=== PATIENT | male | born 1950 | race African-American/Black ===

== ENCOUNTER 2018-05-24 10:00 | Inpatient (IN) ==
[2018-05-24] MEDS ORDERED: MECLIZINE 25 MG TABLET PO STA (10:27)
[2018-05-24] MEDS ORDERED: ONDANSETRON 4 MG/2 ML VIAL IV STA (10:27)
[2018-05-24] MEDS ORDERED: SODIUM CHLORIDE 0.9% 500 ML IV STA (10:27)
[2018-05-24 11:28] LABS: PT Patient Result 10.8 SECS
[2018-05-24 11:34] LABS: Basophils # 0.1 10*3/uL (0.0-0.2); Basophils % 1.1 % (0.0-0.8); Eosinophils # 0.1 10*3/uL (0.0-0.87); Eosinophils % 1.1 % (0.00-10.9); Hematocrit 42.4 VOL% (42.0-52.0); Hemoglobin 13.5 GM/DL (14.0-18.0); Immature Granulocytes % 0.4 %; Immature Granulocytes Absolute 0.02 #; Lymphocytes # 1.5 10*3/uL (1.4-4.0); Lymphocytes % 32.1 % (21.2-54.2); Mean Corpuscular HGB Conc 31.8 GM/DL (32-36); Mean Corpuscular Hemoglobin 23 PG (27-34); Mean Corpuscular Volume 73.2 FL (87-102); Mean Platelet Volume 10.2 FL (9.6-12.0); Monocytes # 0.6 10*3/uL (0.11-0.8); Monocytes % 13.3 % (1.7-12.7); Neutrophils # 2.4 10*3/uL (1.4-7.4); Platelet Count 266 T/CUMM (130-400); Red Blood Count 5.79 MC/CUMM (3.8-5.5); Red Cell Distribution Width 15.4 % (9.3-17.3); White Blood Count 4.5 T/CUMM (4-12)
[2018-05-24 11:46] LABS: Bilirubin,Total 0.6 MG/DL (0.2-1.0); CKMB % 1.7 %; Calcium 9.2 MG/DL (8.5-10.1); Osmolality,Calculated 266.2 MOS/KG (273-304); Potassium 3.7 MMOL/L (3.5-5.1); Thyroid Stimulating Hormone 0.317 uIU/ml (0.358-3.74); Total Protein 9.2 G/DL (6.4-8.3)
[2018-05-24 11:48] LABS: Troponin I 5.97 NG/ML (0.00-0.045)
[2018-05-24] MEDS ORDERED: ENOXAPARIN 100 MG/ML SYRINGE SUBCUT STA (12:22)
[2018-05-24] MEDS ORDERED: ASPIRIN 325 MG TABLET PO STA (12:22)
[2018-05-24 12:42] LABS: Sedimentation Rate-Westergren 13 MM/HR (0-20)
[2018-05-24] MEDS ORDERED: POTASSIUM CHLORIDE 20 MEQ TABLET PO PRN ×2 (12:51)
[2018-05-24] MEDS ORDERED: MAGNESIUM SULF RIDER 2 GM in PREMIX 1 EACH IV PRN ×3 (12:51→14:24)
[2018-05-24] MEDS ORDERED: MAGNESIUM SULF RIDER 4 GM in PREMIX 1 EACH IV PRN ×2 (12:51→14:16)
[2018-05-24] MEDS ORDERED: MORPHINE 4 MG/1 ML VIAL IV PRN (12:51)
[2018-05-24] MEDS ORDERED: ZALEPLON 5 MG CAPSULE PO PRN (12:51)
[2018-05-24] MEDS ORDERED: MAGNESIUM HYDROXIDE SUSP 30 ML UDCUP PO PRN (12:51)
[2018-05-24] MEDS ORDERED: DIAZEPAM 5 MG TABLET PO ONE (14:24)
[2018-05-24] MEDS ORDERED: POTASSIUM CHLORIDE RIDER 10 MEQ in PREMIX 1 EACH IV PRN (14:24)
[2018-05-24] MEDS ORDERED: diphenhydrAMINE CAP 25 MG CAPSULE PO ONE (14:24)
[2018-05-24] MEDS ORDERED: ACETAMINOPHEN 325 MG/10.15 ML UDCUP PO STA (14:29)
[2018-05-24] MEDS: SODIUM CHLORIDE 0.9% 1,000 ML IV SCH (14:38)
[2018-05-24 14:50] LABS: Apearance,Urine CLEAR (Clear); Bilirubin,Urine Negative (Negative); Blood, Urine Negative (Negative); Glucose,Urine (UA) Negative (Negative); Ketones,Urine Negative (Negative); Mucus,Urine Occasional /LPF (Occasional); Nitrite,Urine Negative (Negative); Protein,Urine Negative; RBC,Urine <1 /HPF (0-4); Urine Color Yellow (Yellow); Urine Specific Gravity 1.014 (1.001-1.035); Urine Urobilinogen < 2.0 EU/DL (0.2-1.0); WBC,Urine 1 /HPF (0-6)
[2018-05-24] MEDS: CARVEDILOL 12.5 MG TABLET PO SCH ×2 (15:00→21:14)
[2018-05-24] MEDS ORDERED: LIDOCAINE 1% 20 ML VIAL ONE (15:13)
[2018-05-24] MEDS ORDERED: HYDROmorphone 2 MG/1 ML VIAL ONE (15:16)
[2018-05-24] MEDS ORDERED: MIDAZOLAM 2 MG/2 ML VIAL ONE (15:17)
[2018-05-24] MEDS ORDERED: NITROGLYCERIN SL 0.4 MG TABLET SL PRN (15:37)
[2018-05-24] MEDS ORDERED: NITROGLYCERIN 2% OINT 1 INCH/GM PACK TOP SCH (18:00)
[2018-05-24] MEDS: FAMOTIDINE 20 MG TABLET PO SCH (21:14)
[2018-05-24] MEDS: ROSUVASTATIN 20 MG TABLET PO SCH (21:14)
[2018-05-24 23:35] LABS: Barbiturates Screen,Urine Negative (Negative); Benzodiazepines Screen,Urine Positive (Negative); Cannabinoid Screen,Urine Negative (Negative); Opiate Screen,Urine Positive (Negative); Phencyclidine Screen,Urine Negative (Negative)
[2018-05-25] MEDS: ACETAMINOPHEN/CODEINE 300-30 MG TABLET PO PRN ×2 (01:52→17:36)
[2018-05-25] MEDS: SODIUM CHLORIDE 0.9% 1,000 ML IV SCH (04:06)
[2018-05-25 05:18] LABS: Basophils % 1.1 % (0.0-0.8); Eosinophils # 0.1 10*3/uL (0.0-0.87); Eosinophils % 1.3 % (0.00-10.9); Hematocrit 35.1 VOL% (42.0-52.0); Immature Granulocytes % 0.8 %; Immature Granulocytes Absolute 0.03 #; Lymphocytes # 0.8 10*3/uL (1.4-4.0); Lymphocytes % 22.3 % (21.2-54.2); Mean Corpuscular HGB Conc 32.2 GM/DL (32-36); Mean Corpuscular Hemoglobin 24 PG (27-34); Mean Platelet Volume 10.4 FL (9.6-12.0); Monocytes # 0.7 10*3/uL (0.11-0.8); Monocytes % 17.7 % (1.7-12.7); Neutrophils # 2.1 10*3/uL (1.4-7.4); Neutrophils % 56.8 % (38.7-73.9); Platelet Count 233 T/CUMM (130-400); Red Blood Count 4.81 MC/CUMM (3.8-5.5); White Blood Count 3.7 T/CUMM (4-12)
[2018-05-25 05:40] LABS: Hemoglobin 11.3 GM/DL (14.0-18.0)
[2018-05-25 05:45] LABS: Calcium 8.3 MG/DL (8.5-10.1); Osmolality,Calculated 268.1 MOS/KG (273-304); Potassium 3.9 MMOL/L (3.5-5.1); Risk Ratio 6.67; VLDL CHOLESTEROL 39.6 MG/DL
[2018-05-25 05:48] LABS: Eosinophils 2 % (0-10); Hypochromasia 1+; Lymphocytes 30 % (20-55); Ovalocytes Slight; Platelet Estimate Adequate; Segmented Neutrophils 52 % (50-85); Total Cells Counted 100
[2018-05-25] MEDS: CARVEDILOL 12.5 MG TABLET PO SCH ×2 (08:32→21:37)
[2018-05-25] MEDS: FAMOTIDINE 20 MG TABLET PO SCH (08:32)
[2018-05-25] MEDS ORDERED: HYDROCHLOROTHIAZIDE PO SCH (09:00)
[2018-05-25] MEDS ORDERED: [UNRECOGNIZED DRUG - OTHER] PO SCH (09:00)
[2018-05-25] MEDS ORDERED: VALSARTAN PO SCH (09:00)
[2018-05-25] MEDS ORDERED: CLOPIDOGREL 75 MG TABLET PO SCH (10:30)
[2018-05-25] MEDS: ASPIRIN EC 81 MG TABLET PO SCH (11:31)
[2018-05-25] MEDS ORDERED: KETOROLAC 30 MG/1 ML VIAL IV ONE (11:39)
[2018-05-25] MEDS ORDERED: POLYETHYLENE GLYCOL POWDER 17 GM PACK PO SCH (15:00)
[2018-05-25] MEDS ORDERED: ONDANSETRON 4 MG/2 ML VIAL IV PRN (15:07)
[2018-05-25] MEDS: amLODIPine 5 MG TABLET PO SCH (15:49)
[2018-05-25] MEDS: POLYETHYLENE GLYCOL POWDER 17 GM PACK PO SCH (21:37)
[2018-05-25] MEDS: ROSUVASTATIN 20 MG TABLET PO SCH (21:37)
[2018-05-25] MEDS: FERROUS GLUCONATE 324 MG TABLET PO SCH (21:37)
[2018-05-25] MEDS: MAGNESIUM OXIDE 400 MG TABLET PO SCH (21:37)
[2018-05-25] MEDS: PANTOPRAZOLE 40 MG TABLET PO SCH (21:37)
[2018-05-26 04:27] LABS: Basophils % 0.4 % (0.0-0.8); Eosinophils # 0.1 10*3/uL (0.0-0.87); Eosinophils % 1.9 % (0.00-10.9); Hematocrit 35.9 VOL% (42.0-52.0); Hemoglobin 11.3 GM/DL (14.0-18.0); Immature Granulocytes % 0.4 %; Immature Granulocytes Absolute 0.02 #; Lymphocytes # 0.9 10*3/uL (1.4-4.0); Lymphocytes % 19.6 % (21.2-54.2); Mean Corpuscular HGB Conc 31.5 GM/DL (32-36); Mean Corpuscular Hemoglobin 24 PG (27-34); Mean Corpuscular Volume 74.8 FL (87-102); Mean Platelet Volume 10.1 FL (9.6-12.0); Monocytes # 0.6 10*3/uL (0.11-0.8); Monocytes % 12.9 % (1.7-12.7); Neutrophils # 3.1 10*3/uL (1.4-7.4); Neutrophils % 64.8 % (38.7-73.9); Platelet Count 227 T/CUMM (130-400); Red Cell Distribution Width 14.6 % (9.3-17.3); White Blood Count 4.8 T/CUMM (4-12)
[2018-05-26 04:58] LABS: Calcium 8.6 MG/DL (8.5-10.1); Osmolality,Calculated 263.4 MOS/KG (273-304)
[2018-05-26 05:02] LABS: Calcium 8.4 MG/DL (8.5-10.1); Osmolality,Calculated 264.4 MOS/KG (273-304)
[2018-05-26] MEDS ORDERED: LINACLOTIDE 145 MCG CAPSULE PO SCH (07:30)
[2018-05-26] MEDS ORDERED: CYANOCOBALAMIN 500 MCG TABLET PO SCH (09:00)
[2018-05-26] MEDS ORDERED: LIDOCAINE 2% 5 ML VIAL ONE (10:00)
[2018-05-26] MEDS ORDERED: PHENYLEPHRINE 1 MG/10 ML SYRINGE IV ONE (10:00)
[2018-05-26] MEDS ORDERED: PROPOFOL 200 MG/20 ML VIAL IV ONE (10:00)
[2018-05-26 10:21] LABS: Anti SS-A Antibodies > 100 EU/ML
[2018-05-26 10:22] LABS: Double Stranded DNA Antibodies < 25.0 IU/ML
[2018-05-26] MEDS: CARVEDILOL 12.5 MG TABLET PO SCH (10:52)
[2018-05-26] MEDS: PANTOPRAZOLE 40 MG TABLET PO SCH (10:52)
[2018-05-26] MEDS: ASPIRIN EC 81 MG TABLET PO SCH (10:53)
[2018-05-26] MEDS: amLODIPine 5 MG TABLET PO SCH (10:53)
[2018-05-26] MEDS: FERROUS GLUCONATE 324 MG TABLET PO SCH (10:53)
[2018-05-26] MEDS: MAGNESIUM OXIDE 400 MG TABLET PO SCH (10:53)
[2018-05-26] MEDS: POLYETHYLENE GLYCOL POWDER 17 GM PACK PO SCH (11:06)
[2018-05-26 12:44] LABS: Anti-Nuclear Antibody Pattern Speckled
[2018-05-26] MEDS: ACETAMINOPHEN/CODEINE 300-30 MG TABLET PO PRN (16:48)
[2018-05-26 17:18] VITALS: BP 121/72
== END 2018-05-26 17:16 | disposition hospice, home (50) | DRG 281 ==
LOC: N.ED 10:00 → N.EDINP 14:24 → N.TELEN 15:31
PROVIDERS: ADMIT Internal Medicine Cardiovascular Disease; ATTEND Internal Medicine Cardiovascular Disease
PROC: CLCCHCL (ICD-10-PCS; 2018-05-24 15:15)

== ENCOUNTER 2018-07-14 07:18 | Inpatient (IN) ==
[2018-07-14] MEDS ORDERED: ONDANSETRON 4 MG/2 ML VIAL IV STA (07:42)
[2018-07-14] MEDS ORDERED: SODIUM CHLORIDE 0.9% 1,000 ML IV STA (07:42)
[2018-07-14 07:59] LABS: Basophils % 0.1 % (0.0-0.8); Hematocrit 37.9 VOL% (42.0-52.0); Hemoglobin 11.7 GM/DL (14.0-18.0); Immature Granulocytes % 0.5 %; Immature Granulocytes Absolute 0.05 #; Lymphocytes % 11.2 % (21.2-54.2); Mean Corpuscular HGB Conc 30.9 GM/DL (32-36); Mean Corpuscular Hemoglobin 23 PG (27-34); Mean Corpuscular Volume 75.5 FL (87-102); Mean Platelet Volume 9.9 FL (9.6-12.0); Monocytes # 0.2 10*3/uL (0.11-0.8); Monocytes % 2.3 % (1.7-12.7); Neutrophils # 7.8 10*3/uL (1.4-7.4); Neutrophils % 85.9 % (38.7-73.9); Platelet Count 293 T/CUMM (130-400); Red Blood Count 5.02 MC/CUMM (3.8-5.5); Red Cell Distribution Width 17.1 % (9.3-17.3); White Blood Count 9.1 T/CUMM (4-12)
[2018-07-14 08:22] LABS: Alanine Aminotransferase 50 U/L (16-61); Albumin 3.4 G/DL (3.4-5.0); Alkaline Phosphatase 61 U/L (45-117); Aspartate Amino Transferase 27 U/L (0-37); Blood Urea Nitrogen 17 MG/DL (7-18); Glucose 92 MG/DL (74-106); Osmolality,Calculated 284.1 MOS/KG (273-304); Potassium 3.3 MMOL/L (3.5-5.1); Sodium 142 MMOL/L (136-145)
[2018-07-14 08:26] LABS: Lactic Acid 2.7 MMOL/L (0.4-2.0)
[2018-07-14] MEDS ORDERED: SODIUM CHLORIDE 0.9% 1,000 ML IV ONE ×2 (08:27→10:48)
[2018-07-14 08:32] LABS: Band Neutrophils 4 % (0-10); Hypochromasia 1+; Lymphocytes 11 % (20-55); Platelet Estimate Adequate; Segmented Neutrophils 84 % (50-85); Total Cells Counted 100
[2018-07-14] MEDS ORDERED: LEVOFLOXACIN INJ 500 MG in PREMIX 1 EACH IV STA (08:43)
[2018-07-14 09:00] LABS: Apearance,Urine CLEAR (Clear); Bilirubin,Urine Negative (Negative); Blood, Urine Negative (Negative); Glucose,Urine (UA) Negative (Negative); Hyaline Casts,Urine 1 /LPF (0-3); Ketones,Urine Negative (Negative); Mucus,Urine Occasional /LPF (Occasional); Nitrite,Urine Negative (Negative); Protein,Urine Negative; RBC,Urine <1 /HPF (0-4); Urine Color Yellow (Yellow); Urine Specific Gravity 1.009 (1.001-1.035); Urine Urobilinogen < 2.0 EU/DL (0.2-1.0); WBC,Urine <1 /HPF (0-6)
[2018-07-14] MEDS ORDERED: SODIUM CHLORIDE 0.9% 400 ML IV STA (09:01)
[2018-07-14] MEDS ORDERED: ACETAMINOPHEN 325 MG TABLET PO PRN (09:01)
[2018-07-14] MEDS ORDERED: ONDANSETRON 4 MG/2 ML VIAL IV PRN (09:01)
[2018-07-14] MEDS ORDERED: HYDROCORTISONE 100 MG VIAL IV STA (09:05)
[2018-07-14] MEDS ORDERED: MAGNESIUM SULF RIDER 4 GM in PREMIX 1 EACH IV ONE ×2 (09:08→10:30)
[2018-07-14] MEDS ORDERED: ALBUTEROL 2.5 MG/3 ML NEB RESP TX PRN (09:09)
[2018-07-14] MEDS ORDERED: BENZONATATE 100 MG CAPSULE PO PRN (09:10)
[2018-07-14] MEDS: ENOXAPARIN 40 MG/0.4 ML SYRINGE SUBCUT SCH (12:14)
[2018-07-14] MEDS: PANTOPRAZOLE 40 MG TABLET PO SCH (12:14)
[2018-07-14] MEDS ORDERED: SODIUM CHLORIDE 0.9% 100 ML IV ONE (12:16)
[2018-07-14] MEDS: cefTRIAXone 1,000 MG in SYRINGE 1 EACH IV SCH (12:17)
[2018-07-14] MEDS ORDERED: NOREPINEPHRINE 8 MG in SODIUM CHLORIDE 0.9% 242 ML IV SCH (13:00)
[2018-07-14] MEDS: SODIUM CHLORIDE 0.9% 1,000 ML IV SCH (13:21)
[2018-07-14] MEDS: POTASSIUM CHLORIDE RIDER 10 MEQ in PREMIX 1 EACH IV SCH ×4 (13:21→15:34)
[2018-07-14 14:34] LABS: Calcium 7.8 MG/DL (8.5-10.1); Osmolality,Calculated 288.7 MOS/KG (273-304); Potassium 3.3 MMOL/L (3.5-5.1)
[2018-07-14] MEDS: AZITHROMYCIN INJ 500 MG in SODIUM CHLORIDE 0.9% 250 ML IV SCH (14:34)
[2018-07-14] MEDS: HYDROCORTISONE 100 MG VIAL IV SCH (16:43)
[2018-07-15] MEDS: HYDROCORTISONE 100 MG VIAL IV SCH ×3 (00:56→16:19)
[2018-07-15] MEDS: SODIUM CHLORIDE 0.9% 1,000 ML IV SCH (00:56)
[2018-07-15 04:57] LABS: Basophils % 0.1 % (0.0-0.8); Hematocrit 32.4 VOL% (42.0-52.0); Hemoglobin 9.9 GM/DL (14.0-18.0); Immature Granulocytes % 0.8 %; Immature Granulocytes Absolute 0.17 #; Lymphocytes # 0.8 10*3/uL (1.4-4.0); Mean Corpuscular HGB Conc 30.6 GM/DL (32-36); Mean Corpuscular Hemoglobin 23 PG (27-34); Mean Corpuscular Volume 75.5 FL (87-102); Mean Platelet Volume 10.7 FL (9.6-12.0); Monocytes # 0.8 10*3/uL (0.11-0.8); Monocytes % 3.9 % (1.7-12.7); Neutrophils % 91.2 % (38.7-73.9); Platelet Count 290 T/CUMM (130-400); Red Blood Count 4.29 MC/CUMM (3.8-5.5); Red Cell Distribution Width 17.4 % (9.3-17.3); White Blood Count 20.8 T/CUMM (4-12)
[2018-07-15 05:27] LABS: Band Neutrophils 12 % (0-10); Lymphocytes 1 % (20-55); Metamyelocytes 1 %; Segmented Neutrophils 85 % (50-85); Total Cells Counted 100
[2018-07-15 05:28] LABS: Hypochromasia 1+; Microcytosis 1+
[2018-07-15 05:29] LABS: Acanthocytes Few; Elliptocytes Few; Ovalocytes Slight; Platelet Estimate Normal
[2018-07-15 05:38] LABS: Calcium 8.1 MG/DL (8.5-10.1)
[2018-07-15 05:39] LABS: Osmolality,Calculated 290.6 MOS/KG (273-304); Potassium 3.6 MMOL/L (3.5-5.1)
[2018-07-15] MEDS: LEVOTHYROXINE 25 MCG TABLET PO SCH (06:24)
[2018-07-15] MEDS: PANTOPRAZOLE 40 MG TABLET PO SCH (08:45)
[2018-07-15] MEDS: ENOXAPARIN 40 MG/0.4 ML SYRINGE SUBCUT SCH (08:45)
[2018-07-15] MEDS: AZITHROMYCIN INJ 500 MG in SODIUM CHLORIDE 0.9% 250 ML IV SCH (08:45)
[2018-07-15] MEDS: cefTRIAXone 1,000 MG in SYRINGE 1 EACH IV SCH (08:45)
[2018-07-15] MEDS: DEXTROSE 5% NACL 0.45% 1,000 ML IV SCH (09:01)
[2018-07-15] MEDS: FERROUS GLUCONATE 324 MG TABLET PO SCH ×2 (12:13→20:30)
[2018-07-15] MEDS: ATORVASTATIN 40 MG TABLET PO SCH (12:13)
[2018-07-15] MEDS ORDERED: INFLUENZA VIRUS VACCINE 0.5 ML SYRINGE IM ONE (21:00)
[2018-07-16] MEDS: HYDROCORTISONE 100 MG VIAL IV SCH ×3 (00:46→16:39)
[2018-07-16] MEDS: DEXTROSE 5% NACL 0.45% 1,000 ML IV SCH ×3 (00:46→09:20)
[2018-07-16 04:38] LABS: Basophils % 0.1 % (0.0-0.8); Hematocrit 29.3 VOL% (42.0-52.0); Immature Granulocytes % 2.1 %; Immature Granulocytes Absolute 0.46 #; Lymphocytes # 0.8 10*3/uL (1.4-4.0); Lymphocytes % 3.6 % (21.2-54.2); Mean Corpuscular HGB Conc 30.7 GM/DL (32-36); Mean Corpuscular Hemoglobin 23 PG (27-34); Mean Corpuscular Volume 75.1 FL (87-102); Mean Platelet Volume 11.2 FL (9.6-12.0); Monocytes # 0.9 10*3/uL (0.11-0.8); Monocytes % 3.9 % (1.7-12.7); Neutrophils # 20.3 10*3/uL (1.4-7.4); Neutrophils % 90.3 % (38.7-73.9); Platelet Count 262 T/CUMM (130-400); Red Cell Distribution Width 17.8 % (9.3-17.3); White Blood Count 22.4 T/CUMM (4-12)
[2018-07-16 05:15] LABS: Eosinophils 1 % (0-10); Hypochromasia Slight; Lymphocytes 4 % (20-55); Platelet Estimate Normal; Polychromasia Few; Segmented Neutrophils 90 % (50-85); Total Cells Counted 100
[2018-07-16 05:57] LABS: Albumin 2.6 G/DL (3.4-5.0); Calcium 8.1 MG/DL (8.5-10.1); Osmolality,Calculated 289.7 MOS/KG (273-304); Potassium 3.7 MMOL/L (3.5-5.1)
[2018-07-16] MEDS: LEVOTHYROXINE 25 MCG TABLET PO SCH (06:10)
[2018-07-16] MEDS: cefTRIAXone 1,000 MG in SYRINGE 1 EACH IV SCH (09:14)
[2018-07-16] MEDS: FERROUS GLUCONATE 324 MG TABLET PO SCH ×2 (09:15→21:35)
[2018-07-16] MEDS: PANTOPRAZOLE 40 MG TABLET PO SCH (09:15)
[2018-07-16] MEDS: ENOXAPARIN 40 MG/0.4 ML SYRINGE SUBCUT SCH (09:15)
[2018-07-16] MEDS: ATORVASTATIN 40 MG TABLET PO SCH (09:15)
[2018-07-16] MEDS ORDERED: SODIUM CHLORIDE 0.9% IV ONE (11:00)
[2018-07-16] MEDS ORDERED: POTASSIUM PHOSPHATE IV ONE (11:00)
[2018-07-16] MEDS: AZITHROMYCIN INJ 500 MG in SODIUM CHLORIDE 0.9% 250 ML IV SCH (11:10)
[2018-07-16] MEDS: VALSARTAN/HCTZ 80-12.5 MG TABLET PO SCH (12:30)
[2018-07-16] MEDS: CARVEDILOL 12.5 MG TABLET PO SCH (16:37)
[2018-07-17] MEDS: HYDROCORTISONE 100 MG VIAL IV SCH (01:24)
[2018-07-17] MEDS: DEXTROSE 5% NACL 0.45% 1,000 ML IV SCH ×3 (01:25→09:30)
[2018-07-17 05:05] LABS: Basophils % 0.1 % (0.0-0.8); Immature Granulocytes % 3.3 %; Immature Granulocytes Absolute 0.65 #; Mean Corpuscular Hemoglobin 23 PG (27-34); Mean Corpuscular Volume 74.7 FL (87-102); Mean Platelet Volume 10.8 FL (9.6-12.0); Monocytes # 0.7 10*3/uL (0.11-0.8); Monocytes % 3.7 % (1.7-12.7); Neutrophils # 17.2 10*3/uL (1.4-7.4); Neutrophils % 87.9 % (38.7-73.9); Platelet Count 288 T/CUMM (130-400); Red Blood Count 3.88 MC/CUMM (3.8-5.5); Red Cell Distribution Width 17.4 % (9.3-17.3); White Blood Count 19.6 T/CUMM (4-12)
[2018-07-17 05:06] LABS: Calcium 8.1 MG/DL (8.5-10.1); Osmolality,Calculated 287.8 MOS/KG (273-304); Potassium 3.2 MMOL/L (3.5-5.1)
[2018-07-17 06:08] LABS: Hypochromasia 1+; Lymphocytes 6 % (20-55); Myelocytes 1 %; Segmented Neutrophils 87 % (50-85); Total Cells Counted 100
[2018-07-17 06:09] LABS: Acanthocytes Few; Microcytosis 1+; Ovalocytes Slight; Platelet Estimate Normal; Target Cells Slight
[2018-07-17] MEDS: LEVOTHYROXINE 25 MCG TABLET PO SCH (06:23)
[2018-07-17] MEDS: cefTRIAXone 1,000 MG in SYRINGE 1 EACH IV SCH (09:44)
[2018-07-17] MEDS: ATORVASTATIN 40 MG TABLET PO SCH (09:45)
[2018-07-17] MEDS: PANTOPRAZOLE 40 MG TABLET PO SCH (09:45)
[2018-07-17] MEDS: FERROUS GLUCONATE 324 MG TABLET PO SCH ×2 (09:45→20:19)
[2018-07-17] MEDS: CARVEDILOL 12.5 MG TABLET PO SCH ×2 (09:45→17:54)
[2018-07-17] MEDS: VALSARTAN/HCTZ 80-12.5 MG TABLET PO SCH (09:45)
[2018-07-17] MEDS: HYDROCORTISONE 10 MG TABLET PO SCH (09:45)
[2018-07-17] MEDS: ENOXAPARIN 40 MG/0.4 ML SYRINGE SUBCUT SCH (09:47)
[2018-07-17] MEDS: AZITHROMYCIN INJ 500 MG in SODIUM CHLORIDE 0.9% 250 ML IV SCH (10:39)
[2018-07-17] MEDS ORDERED: HYDROCORTISONE 10 MG TABLET PO SCH (21:00)
[2018-07-18 04:36] LABS: Calcium 8.3 MG/DL (8.5-10.1); Osmolality,Calculated 289.6 MOS/KG (273-304); Potassium 3.4 MMOL/L (3.5-5.1)
[2018-07-18] MEDS: LEVOTHYROXINE 25 MCG TABLET PO SCH (06:45)
[2018-07-18 07:17] LABS: Basophils # 0.1 10*3/uL (0.0-0.2); Basophils % 0.4 % (0.0-0.8); Eosinophils % 0.2 % (0.00-10.9); Hematocrit 30.8 VOL% (42.0-52.0); Hemoglobin 9.4 GM/DL (14.0-18.0); Immature Granulocytes % 2.5 %; Immature Granulocytes Absolute 0.33 #; Lymphocytes # 2.1 10*3/uL (1.4-4.0); Mean Corpuscular HGB Conc 30.5 GM/DL (32-36); Mean Corpuscular Hemoglobin 23 PG (27-34); Mean Corpuscular Volume 76.6 FL (87-102); Mean Platelet Volume 10.8 FL (9.6-12.0); Monocytes % 7.3 % (1.7-12.7); NRBC # 0.03 10*3/uL; Neutrophils # 9.7 10*3/uL (1.4-7.4); Neutrophils % 73.6 % (38.7-73.9); Platelet Count 326 T/CUMM (130-400); Red Blood Count 4.02 MC/CUMM (3.8-5.5); Red Cell Distribution Width 17.3 % (9.3-17.3); White Blood Count 13.1 T/CUMM (4-12)
[2018-07-18] MEDS ORDERED: POTASSIUM CHLORIDE 20 MEQ/15 ML UDCUP PER TUBE PRN (07:25)
[2018-07-18] MEDS: CARVEDILOL 12.5 MG TABLET PO SCH (08:55)
[2018-07-18] MEDS: ATORVASTATIN 40 MG TABLET PO SCH (09:45)
[2018-07-18] MEDS: PANTOPRAZOLE 40 MG TABLET PO SCH (09:45)
[2018-07-18] MEDS: FERROUS GLUCONATE 324 MG TABLET PO SCH (09:45)
[2018-07-18] MEDS: VALSARTAN/HCTZ 80-12.5 MG TABLET PO SCH (09:45)
[2018-07-18] MEDS: ENOXAPARIN 40 MG/0.4 ML SYRINGE SUBCUT SCH (09:45)
[2018-07-18] MEDS: HYDROCORTISONE 10 MG TABLET PO SCH (09:45)
[2018-07-18] MEDS: POTASSIUM CHLORIDE 20 MEQ TABLET PO PRN ×3 (09:46→13:36)
[2018-07-18] MEDS: cefTRIAXone 1,000 MG in SYRINGE 1 EACH IV SCH (09:56)
[2018-07-18] MEDS: AZITHROMYCIN INJ 500 MG in SODIUM CHLORIDE 0.9% 250 ML IV SCH (09:59)
[2018-07-18 11:54] VITALS: BP 109/82
== END 2018-07-18 14:19 | disposition home or self-care (01) | DRG 871 ==
LOC: N.ED 07:18 → N.EDINP 09:01 → SUATTDRO 09:01 → N.5E 10:14 → N.ICU 13:00 → N.2E 07-15 11:27
PROVIDERS: ADMIT Internal Medicine; ATTEND Hospitalist

== ENCOUNTER 2019-04-24 07:56 | Observation (INO) ==
[2019-04-24] MEDS ORDERED: SODIUM CHLORIDE 0.9% 500 ML IV STA (08:29)
[2019-04-24] MEDS ORDERED: ONDANSETRON 4 MG/2 ML VIAL ONE (08:50)
[2019-04-24] MEDS ORDERED: ONDANSETRON 4 MG/2 ML VIAL IV STA (08:50)
[2019-04-24 08:57] LABS: Basophils % 0.2 % (0.0-0.8); Eosinophils % 0.2 % (0.00-10.9); Hematocrit 36.7 VOL% (42.0-52.0); Hemoglobin 11.4 GM/DL (14.0-18.0); Immature Granulocytes % 0.3 %; Immature Granulocytes Absolute 0.03 #; Lymphocytes # 1.4 10*3/uL (1.4-4.0); Mean Corpuscular HGB Conc 31.1 GM/DL (32-36); Mean Corpuscular Volume 74.9 FL (87-102); Mean Platelet Volume 10.2 FL (9.6-12.0); Monocytes % 2.7 % (1.7-12.7); Neutrophils % 81.6 % (38.7-73.9); Platelet Count 237 T/CUMM (130-400); Red Cell Distribution Width 15.9 % (9.3-17.3); White Blood Count 9.4 T/CUMM (4-12)
[2019-04-24 09:20] LABS: Alanine Aminotransferase 43 U/L (16-61); Albumin 3.5 G/DL (3.4-5.0); Alkaline Phosphatase 51 U/L (45-117); Aspartate Amino Transferase 24 U/L (0-37); Bilirubin,Total < 0.39 MG/DL (0.2-1.0); Blood Urea Nitrogen 15 MG/DL (7-18); Calcium 8.5 MG/DL (8.5-10.1); Glucose 99 MG/DL (74-106); Osmolality,Calculated 283.1 MOS/KG (273-304); Total Protein 7.2 G/DL (6.4-8.3)
[2019-04-24 09:27] LABS: Apearance,Urine CLEAR (Clear); Bilirubin,Urine Negative (Negative); Blood, Urine Negative (Negative); Glucose,Urine (UA) Negative (Negative); Ketones,Urine Negative (Negative); Mucus,Urine Occasional /LPF (Occasional); Nitrite,Urine Negative (Negative); Protein,Urine Negative; RBC,Urine 1 /HPF (0-4); Squamous Epithelial Cell,Urine Occasional /HPF (0-10); Urine Color Yellow (Yellow); Urine Specific Gravity 1.013 (1.001-1.035); Urine Urobilinogen < 2.0 EU/DL (0.2-1.0); WBC,Urine <1 /HPF (0-6)
[2019-04-24] MEDS ORDERED: SODIUM CHLORIDE 0.9% 1,000 ML IV STA (09:50)
[2019-04-24] MEDS ORDERED: cefTRIAXone 1,000 MG in SODIUM CHLORIDE 0.9% 100 ML IV STA (14:09)
[2019-04-24] MEDS ORDERED: HYDROCORTISONE 100 MG VIAL IV STA (14:09)
[2019-04-24] MEDS ORDERED: ONDANSETRON 4 MG/2 ML VIAL IV PRN (14:53)
[2019-04-24] MEDS ORDERED: ACETAMINOPHEN 325 MG TABLET PO PRN (14:53)
[2019-04-24] MEDS ORDERED: ALBUTEROL/IPRATROPIUM 3 ML NEB RESP TX PRN (15:16)
[2019-04-24 16:25] LABS: Risk Ratio 5.07; Thyroid Stimulating Hormone 0.603 uIU/ml (0.358-3.74); VLDL CHOLESTEROL 26.2 MG/DL
[2019-04-24] MEDS: LEVOFLOXACIN INJ 750 MG in PREMIX 1 EACH IV SCH (17:04)
[2019-04-24] MEDS: SODIUM CHLORIDE 0.9% 1,000 ML IV SCH (17:04)
[2019-04-24] MEDS: ENOXAPARIN 40 MG/0.4 ML SYRINGE SUBCUT SCH (17:04)
[2019-04-24] MEDS: ALBUTEROL/IPRATROPIUM 3 ML NEB RESP TX SCH (19:33)
[2019-04-24] MEDS ORDERED: MAGNESIUM SULF RIDER 2 GM in PREMIX 1 EACH IV ONE (20:06)
[2019-04-24] MEDS ORDERED: MAGNESIUM SULF RIDER 4 GM in PREMIX 1 EACH IV ONE (20:06)
[2019-04-24] MEDS ORDERED: MAGNESIUM SULF RIDER 4 GM in PREMIX 1 EACH IV PRN (20:33)
[2019-04-24] MEDS ORDERED: HYDROCORTISONE 10 MG TABLET PO SCH (21:00)
[2019-04-24] MEDS: FERROUS SULFATE 325 MG TABLET PO SCH (21:25)
[2019-04-24] MEDS: MAGNESIUM SULF RIDER 2 GM in PREMIX 1 EACH IV PRN ×2 (21:31→23:40)
[2019-04-25] MEDS: ALBUTEROL/IPRATROPIUM 3 ML NEB RESP TX SCH ×2 (00:55→07:37)
[2019-04-25] MEDS: SODIUM CHLORIDE 0.9% 1,000 ML IV SCH ×2 (05:05→10:00)
[2019-04-25 05:13] LABS: Basophils % 0.2 % (0.0-0.8); Eosinophils % 0.1 % (0.00-10.9); Hematocrit 32.2 VOL% (42.0-52.0); Hemoglobin 9.9 GM/DL (14.0-18.0); Immature Granulocytes Absolute 0.18 #; Lymphocytes # 1.7 10*3/uL (1.4-4.0); Lymphocytes % 9.3 % (21.2-54.2); Mean Corpuscular HGB Conc 30.7 GM/DL (32-36); Mean Platelet Volume 10.1 FL (9.6-12.0); Monocytes % 5.3 % (1.7-12.7); Neutrophils % 84.1 % (38.7-73.9); Platelet Count 222 T/CUMM (130-400); Red Blood Count 4.35 MC/CUMM (3.8-5.5); Red Cell Distribution Width 15.9 % (9.3-17.3); White Blood Count 18.3 T/CUMM (4-12)
[2019-04-25 05:18] LABS: Calcium 8.5 MG/DL (8.5-10.1); Osmolality,Calculated 283.8 MOS/KG (273-304)
[2019-04-25] MEDS ORDERED: LEVOTHYROXINE 50 MCG TABLET PO SCH (06:30)
[2019-04-25] MEDS: FERROUS SULFATE 325 MG TABLET PO SCH (08:22)
[2019-04-25] MEDS ORDERED: PANTOPRAZOLE 40 MG TABLET PO SCH (09:00)
[2019-04-25] MEDS ORDERED: HYDROCORTISONE 10 MG TABLET PO SCH (09:00)
[2019-04-25] MEDS ORDERED: CYANOCOBALAMIN 500 MCG TABLET PO SCH (09:00)
[2019-04-25] MEDS ORDERED: POTASSIUM CHLORIDE 20 MEQ TABLET PO SCH (09:00)
[2019-04-25 12:33] VITALS: BP 126/83
[2019-04-25] MEDS: ENOXAPARIN 40 MG/0.4 ML SYRINGE SUBCUT SCH (14:33)
[2019-04-25] MEDS: LEVOFLOXACIN INJ 750 MG in PREMIX 1 EACH IV SCH (14:33)
== END 2019-04-25 13:45 | disposition home or self-care (01) ==
LOC: N.ED 07:56 → N.EDINP 07:56 → SUATTDRO 14:53 → N.5E 15:37
PROVIDERS: ADMIT Internal Medicine Geriatric Medicine